=== PATIENT | female | born 1970 | race American Indian/Alaskan Native ===

== ENCOUNTER 2016-07-25 11:31 | Emergency (ER) | payer MEDICAID ==
[2016-07-25 12:14] VITALS: BP 149/92
[2016-07-25 12:40] LABS: Basophils % (Auto) 0.3 % (0.0-1.8); Eosinophils % (Auto) 0.1 % (0.0-4.3); Hematocrit 37.7 % (30.3-42.9); Hemoglobin 12.6 gm/dl (10.1-14.3); Mean Corpuscular HGB Conc 33 % (30-34); Mean Corpuscular Hemoglobin 30 pg (28-32); Mean Corpuscular Volume 88 fl (79-97); Platelet Count 163 K/mm3 (140-440); Red Blood Count 4.26 M/mm3 (3.65-5.03); Red Cell Distribution Width 13.9 % (13.2-15.2); White Blood Count 8.2 K/mm3 (4.5-11.0)
[2016-07-25 13:08] LABS: Bilirubin,Urine NEG (Negative); Blood,Urine NEG (Negative); Ketones,Urine NEG (Negative); Leukocyte Esterase,Urine NEG (Negative); Mucus,Urine FEW /HPF; Nitrite,Urine NEG (Negative); Urobilinogen,Urine < 2.0 mg/dL (<2.0)
[2016-07-25 13:11] LABS: Anion Gap 20 mmol/L; Blood Urea Nitrogen 8 mg/dL (7-17); Calcium 8.8 mg/dL (8.4-10.2); Carbon Dioxide 23 mmol/L (22-30); Chloride 105.1 mmol/L (98-107); Glucose 106 mg/dL (65-100); Sodium 144 mmol/L (137-145)
--- NOTE | 2016-07-30 19:41 | ED Elopement Review ---
ED Pt Elopement review - Results review Lab results: Laboratory Tests 07/25/16 07/25/16 07/25/16 12:14 12:18 12:18 WBC 8.2 RBC 4.26 Hgb 12.6 Hct 37.7 MCV 88 MCH 30 MCHC 33 RDW 13.9 Plt Count 163 Lymph % (Auto) 7.6 L Kimball % (Auto) 4.0 Eos % (Auto) 0.1 Baso % (Auto) 0.3 Lymph # 0.6 L Kimball # 0.3 Eos # 0.0 Baso # 0.0 Seg Neutrophils % 88.0 H Seg Neutrophils # 7.2 Sodium 144 Potassium 4.0 Chloride 105.1 Carbon Dioxide 23 Anion Gap 20 BUN 8 Creatinine 0.5 L Estimated GFR > 60 BUN/Creatinine Ratio 16.00 Glucose 106 H Calcium 8.8 Urine Color Yellow Urine Turbidity Clear Urine pH 7.0 Ur Specific [place] 1.011 Urine Protein 30 mg/dl Urine Glucose (UA) Neg Urine Ketones Neg Urine Blood Neg Urine Nitrite Neg Urine Bilirubin Neg Urine Urobilinogen < 2.0 Ur Leukocyte Esterase Neg Urine WBC (Auto) 2.0 Urine RBC (Auto) 0.0 U Epithel Cells (Auto) < 1.0 Urine Mucus Few - Call Back decision Pt Call Back Decision: No action required
== END 2016-07-25 19:00 | disposition left against medical advice (07) ==
LOC: ED 11:31
DX: R11.11 Vomiting without nausea (principal); R53.1 Weakness; Z53.21 Procedure and treatment not carried out due to patient leaving prior to being seen by health care provider
CPT/HCPCS: 36415; 80048; 81001; 85025

== ENCOUNTER 2016-10-01 08:34 | Outpatient (CLI) | payer MEDICAID ==
--- NOTE | 2016-10-01 16:00 | Ultrasound Report ---
BILATERAL TARGETED BREAST ULTRASOUND: 10/01/16 08:34:00 CLINICAL: Bilateral breast lesions recommended for biopsy. COMPARISON: March 2016 bilateral breast ultrasound from [facility] FINDINGS: Ultrasound of the right breast was performed and demonstrated several benign cysts and no solid mass. A cystic cluster at 12 o'clock 4 cm from the nipple measures 1.0 x 0.5 x 0.6 cm. A cystic cluster at 11 o'clock 6 cm from the nipple measures 0.9 x 0.3 x 0.8 cm. A cyst at 10 o'clock 4 cm from nipple measures 8 x 6 x 3 mm. A cystic cluster at 9:30 o'clock 6 cm from nipple measures 8 x 3 x 8 mm. Ultrasound of the left breast was performed and demonstrated a benign cyst at 12 o'clock 3 cm from the nipple measuring 6 x 5 x 3 mm and a benign cyst at 2 o'clock 6 cm from the nipple measuring 4 x 3 x 4 mm. IMPRESSION: Bilateral benign cysts and no solid suspicious mass. BI-RADS 2 - - Benign RECOMMENDATION: Routine mammographic screening.
== END 2016-10-01 08:35 | disposition home or self-care (01) ==
LOC: SPVWC 08:34
PROVIDERS: ATTEND Obstetrics & Gynecology
DX: N60.01 Solitary cyst of right breast (principal); N60.02 Solitary cyst of left breast; N64.89 Other specified disorders of breast